=== PATIENT | female | born 1995 | race Two or more races ===

== ENCOUNTER 2017-12-06 05:39 | Inpatient (IN) | payer SELFPAY ==
[~2017-12-06] VITALS: Ht 160 cm; Wt 73.9 kg
[2017-12-06] VITALS (9 sets, daily range): BP systolic 113–138; BP diastolic 64–79
[~2017-12-06 05:39] MED LIST: IBUP-1060 PO; OXYC-323 PO
[2017-12-06] MEDS ORDERED: CITRIC ACID/SODIUM CITRATE 30 ML SOLUTION. PO ONE (06:00)
[2017-12-06] MEDS ORDERED: IV RINGERS,LACTATED 1000ML 1,000 ML IV SCH (06:00)
[2017-12-06 06:37] LABS: HEMATOCRIT 34.3 % (36.0-47.0); HEMOGLOBIN 11.8 g/dL (12.0-15.5); RED BLOOD COUNT 3.99 x10^6/uL (3.50-5.40); RED CELL DISTRIBUTION WIDTH 13.1 % (11.5-14.5); WHITE BLOOD COUNT 10.5 x10^3/uL (4.0-11.0)
[2017-12-06] MEDS: IV RINGERS,LACTATED 1000ML 1,000 ML IV SCH ×2 (07:11→10:31)
[2017-12-06] MEDS ORDERED: OXYTOCIN 10 UNIT/ML VIAL. ONE ×3 (07:35→08:09)
[2017-12-06] MEDS ORDERED: ONDANSETRON PF 4 MG/2 ML VIAL. ONE (07:35)
[2017-12-06] MEDS ORDERED: PHENYLEPHRINE in 0.9% NACL PF 1 MG/10 ML SYRINGE. IV ONE (07:35)
[2017-12-06] MEDS ORDERED: BUPIVACAINE MPF 0.75% DEXTROSE 2 ML AMPUL. ONE (07:36)
[2017-12-06] MEDS ORDERED: MORPHINE PF 5 MG/10 ML VIAL. ONE (07:38)
[2017-12-06] MEDS ORDERED: fentaNYL PF VIAL 100 MCG/2 ML VIAL ONE (07:38)
--- NOTE | 2017-12-06 08:36 | PDOC1 ---
OB - History Hx of Present Care: Good Care Ultrasounds: Normal mid trimester US Obstetrical Complications: None Medical Complications: None Past Family/Social History * Past Medical, Surgical, Family and Obstetric Histories reviewed from chart. Rubella: Immune RPR/VDRL: Negative GBS Status: Negative HBsAG: Negative OB - Chief Complaint & HPI Date of Admission: Date of Admission: Dec 06, 2017 at 05:39 Chief Complaint/History : 3 Para: 2 EGA: 39 Reason for admission: section Indication for : desires repeat Admission Nurse Assessment Rev: Yes OB - Admission Exam Physical Exam Vitals: VS - Last 72 Hours, by Label Date Time Temp Pulse Resp B/P (MAP) Pulse Ox O2 Delivery O2 Flow Rate FiO2 12/06/17 06:22 98.3 80 18 138/75 (96) 99 Room Air 98.3 HEENT: Normal Heart: Regular Rate Lungs: Clear, Equal Abdomen: Gravid, Non tender, Soft Extremities: Edema Reflexes: Normal Cervical Dilatation: 1cm Effacement: 25% Station: -3 Membranes: Intact Heart Rate: Normal Accelerations: Accelerations Present Decelerations: No decelerations Longterm Variability: Moderate Contractions on Admission: >10 Minutes Apart Intensity: Mild Text A: 39 wks IUP Previous c/s x 2 P: Admit for repeat c/s ZULLY BIRD Jr, MD Dec 06, 2017 08:36
--- NOTE | 2017-12-06 08:41 | PDOC4 ---
OB Operative Note Date: Dec 06, 2017 PRE OP DIAGNOSIS: Previoujs C- section POST OP DIAGNOSIS: Previous C- section OPERATION PERFORMED: R [facility] Surgeon Dr. Garrison Anesthesia: Regional (Spinal) Blood Loss 700 ml Specimen placenta and OB Findings: Position (Vertex), Sex (Female), (8/9), Weight (6 Lb 10 oz) Complications none Additional Remarks pt. ZULLY Wilson Jr, MD Dec 06, 2017 08:41
[2017-12-06] MEDS ORDERED: MAG HYDROX/ALUMINUM HYD/SIMETH 30 ML ORAL.SUSP PO PRN (08:45)
[2017-12-06] MEDS ORDERED: SIMETHICONE 80 MG TAB.CHEW PO PRN (08:45)
[2017-12-06] MEDS ORDERED: diphenhydrAMINE ORAL ELIXIR 12.5 MG/5 ML ML PO PRN (08:45)
[2017-12-06] MEDS ORDERED: OXYTOCIN 30 UNIT/500 ML PREMIX 500 ML IV PRN (08:45)
[2017-12-06] MEDS ORDERED: ONDANSETRON PF 4 MG/2 ML VIAL. IV PRN (08:45)
[2017-12-06] MEDS ORDERED: ZOLPIDEM 5 MG TABLET. PO PRN (08:45)
[2017-12-06] MEDS ORDERED: 0.9 % SODIUM CHLORIDE 10 ML DISP.SYRIN. IV PRN (08:45)
--- NOTE | 2017-12-06 10:23 | OP ---
DATE OF SURGERY: PREOPERATIVE DIAGNOSES: 1. 39 weeks intrauterine . 2. Previous section x 2. POSTOPERATIVE DIAGNOSES: 1. 39 weeks intrauterine . 2. Previous section x 2. PROCEDURE: Repeat low transverse section. SURGEON: Zully Garrison MD. ANESTHESIA: Spinal. ESTIMATED BLOOD LOSS: 700 mL. COMPLICATIONS: None. FINDINGS: Viable female , Apgars 8 and 9, weight 6 pounds 10 ounces. Three-vessel cord, placenta delivered manually, nuchal cord x 1. SUMMARY: A 22-year-old 3, para 2, at 39 weeks, presented for repeat section. She was counseled on risks, benefits and expectations and voiced a clear understanding to proceed. DESCRIPTION OF PROCEDURE: The patient was taken to surgery suite, placed in dorsal supine position. She was prepped with ChloraPrep and draped in sterile fashion. After adequate anesthesia, a Pfannenstiel skin incision was made with scalpel down to and through the fascia. The fascia was extended laterally using curved Mead scissors. The superior edge of the fascia was grasped with two Shady clamps and dissected free of the abdominal rectus muscles using blunt dissection along with Bovie cautery. The same process took place inferiorly. The abdominal rectus muscles were then dissected at the midline using curved Mead scissors. The peritoneum was entered as well and dissected bluntly. The Fabrice ring retractor was placed. Lower transverse hysterotomy incision was performed down to the amniotic sac. Hysterotomy incision was extended laterally and superiorly digitally. Amniotomy was performed with Allis clamp, which elicited moderate amount of clear fluid. With aid of fundal pressure, the infant's head was delivered in a smooth atraumatic manner. Nuchal cord x 1 was visualized. With additional fundal pressure, the anterior shoulder was delivered followed by posterior shoulder and rest of female was delivered. Nuchal cord was reduced. was suctioned with bulb syringe orally and nasally, umbilical cord was clamped twice and cut and viable female was handed to awaiting nursing staff. Umbilical cord blood was then obtained. The 3-vessel cord placenta was delivered manually. The uterus was then exteriorized, cleared of clot and debris with moist lap. The hysterotomy incision was reapproximated using 1-0 Vicryl suture in running locked fashion. The uterus palpated firm. Fallopian tubes and ovaries appeared normal bilaterally. Posterior cul-de-sac was cleared of clot and debris with a moist lap. The uterus then returned to the abdomen. Hysterotomy incision was reviewed and was hemostatic. Pericolic gutters were cleared of clot and debris with a moist lap. Interceed was placed over the hysterotomy incision in an inverted T fashion. The Fabrice ring retractor was removed. The peritoneum was reapproximated using 1-0 Vicryl suture in running fashion. Fascia was reapproximated using 0 Vicryl suture in running fashion. Skin was reapproximated using 4-0 Vicryl suture in subcuticular manner. The patient tolerated the procedure well and was taken to the recovery room in stable condition. Sponge and needle count correct x 3. ZULLY GARRISON MD DR: ROBB/ana JOB#: [id number] / [id number]
[2017-12-06] MEDS: KETOROLAC 30 MG/ML VIAL. IV PRN (10:32)
[2017-12-06] MEDS ORDERED: METOCLOPRAMIDE HCL 10 MG/2 ML VIAL. IV PRN ×2 (12:00→12:15)
[2017-12-07] MEDS: KETOROLAC 30 MG/ML VIAL. IV PRN (00:57)
[2017-12-07 04:31] LABS: BASO % 0 % (0-3); EOS % 0 % (0-3); HEMATOCRIT 29.5 % (36.0-47.0); HEMOGLOBIN 10.2 g/dL (12.0-15.5); LYMPH # 1.9 x10^3/uL (1.0-4.8); LYMPH % 14 % (24-48); MEAN CORPUSCULAR HEMOGLOBIN 30 pg (25-35); MEAN CORPUSCULAR HGB CONC 35 g/dL (31-37); MEAN CORPUSCULAR VOLUME 86 fL (79-100); MONO # 1.4 x10^3/uL (0.0-1.1); MONO % 11 % (0-9); NEUT # 9.8 x10^3uL (1.8-7.7); NEUT % 75 % (31-73); PLATELET COUNT 207 x10^3/uL (140-400); RED BLOOD COUNT 3.42 x10^6/uL (3.50-5.40); WHITE BLOOD COUNT 13.1 x10^3/uL (4.0-11.0)
[2017-12-07 06:26] VITALS: BP 115/72
[2017-12-07] MEDS: DOCUSATE SODIUM 100 MG CAPSULE. PO PRN ×2 (07:56→19:22)
[2017-12-07] MEDS: IBUPROFEN 400 MG TABLET. PO PRN ×3 (07:57→22:14)
[2017-12-07] MEDS: FERROUS SULFATE 325 MG TABLET. PO SCH ×2 (07:57→16:05)
[2017-12-07] MEDS: oxyCODONE/APAP 5/325 1 TAB TABLET PO PRN ×2 (07:57→19:22)
[2017-12-07 12:10] VITALS: BP 107/75
--- NOTE | 2017-12-07 15:49 | PDOC ---
OB Progress Note Date of Service 12/07/17 Time of Evaluation 1545 Notes Pt. feeling well. No complaints. Lab Laboratory Tests Test 12/06/17 06:10 12/06/17 06:23 12/07/17 03:00 Treponema pallidum Antibody Nonreactive (Nonreactive) White Blood Count 10.5 x10^3/uL (4.0-11.0) 13.1 x10^3/uL (4.0-11.0) Red Blood Count 3.99 x10^6/uL (3.50-5.40) 3.42 x10^6/uL (3.50-5.40) Hemoglobin 11.8 g/dL (12.0-15.5) 10.2 g/dL (12.0-15.5) Hematocrit 34.3 % (36.0-47.0) 29.5 % (36.0-47.0) Mean Corpuscular Volume 86 fL (79-100) 86 fL (79-100) Mean Corpuscular Hemoglobin 30 pg (25-35) 30 pg (25-35) Mean Corpuscular Hemoglobin Concent 35 g/dL (31-37) 35 g/dL (31-37) Red Cell Distribution Width 13.1 % (11.5-14.5) 13.0 % (11.5-14.5) Platelet Count 254 x10^3/uL (140-400) 207 x10^3/uL (140-400) Neutrophils (%) (Auto) 75 % (31-73) Lymphocytes (%) (Auto) 14 % (24-48) Monocytes (%) (Auto) 11 % (0-9) Eosinophils (%) (Auto) 0 % (0-3) Basophils (%) (Auto) 0 % (0-3) Neutrophils # (Auto) 9.8 x10^3uL (1.8-7.7) Lymphocytes # (Auto) 1.9 x10^3/uL (1.0-4.8) Monocytes # (Auto) 1.4 x10^3/uL (0.0-1.1) Eosinophils # (Auto) 0.0 x10^3/uL (0.0-0.7) Basophils # (Auto) 0.0 x10^3/uL (0.0-0.2) Laboratory Tests Test 12/07/17 03:00 White Blood Count 13.1 x10^3/uL (4.0-11.0) Red Blood Count 3.42 x10^6/uL (3.50-5.40) Hemoglobin 10.2 g/dL (12.0-15.5) Hematocrit 29.5 % (36.0-47.0) Mean Corpuscular Volume 86 fL (79-100) Mean Corpuscular Hemoglobin 30 pg (25-35) Mean Corpuscular Hemoglobin Concent 35 g/dL (31-37) Red Cell Distribution Width 13.0 % (11.5-14.5) Platelet Count 207 x10^3/uL (140-400) Neutrophils (%) (Auto) 75 % (31-73) Lymphocytes (%) (Auto) 14 % (24-48) Monocytes (%) (Auto) 11 % (0-9) Eosinophils (%) (Auto) 0 % (0-3) Basophils (%) (Auto) 0 % (0-3) Neutrophils # (Auto) 9.8 x10^3uL (1.8-7.7) Lymphocytes # (Auto) 1.9 x10^3/uL (1.0-4.8) Monocytes # (Auto) 1.4 x10^3/uL (0.0-1.1) Eosinophils # (Auto) 0.0 x10^3/uL (0.0-0.7) Basophils # (Auto) 0.0 x10^3/uL (0.0-0.2) Medications Current Medications Ringer's Solution 1,000 ml @ 1,000 mls/hr Q1H IV Last administered on at 06:28; Start 12/06/17 at 06:00; Stop 12/06/17 at 06:59; Status DC Ringer's Solution 1,000 ml @ 125 mls/hr Q8H IV Last administered on at 10:31; Start 12/06/17 at 06:00 Cefazolin Sodium/ Dextrose 50 ml @ 100 mls/hr 1X ONCE IV Last administered on 12/06/17at 06:29; Start 12/06/17 at 06:00; Stop 12/06/17 at 06:29; Status DC Citric Acid/ Sodium Citrate (Bicitra) 30 ml 1X ONCE PO Last administered on at 06:27; Start 12/06/17 at 06:00; Stop 12/06/17 at 06:01; Status DC Ondansetron HCl (Zofran) 4 mg STK-MED ONCE .ROUTE ; Start 12/06/17 at 07:35; Stop 12/06/17 at 07:36; Status DC Phenylephrine HCl (PHENYLEPHRINE in 0.9% NACL PF) 1 mg STK-MED ONCE IV ; Start 12/06/17 at 07:35; Stop 12/06/17 at 07:36; Status DC Oxytocin (Pitocin) 10 unit STK-MED ONCE .ROUTE ; Start 12/06/17 at 07:35; Stop 12/06/17 at 07:36; Status DC Ephedrine Sulfate (Akovaz) 50 mg STK-MED ONCE .ROUTE ; Start 12/06/17 at 07:35 ; Stop 12/06/17 at 07:36; Status DC Bupivacaine HCl/ Dextrose (Marcaine Spinal 0.75%) 2 ml STK-MED ONCE .ROUTE ; Start 12/06/17 at 07:36; Stop 12/06/17 at 07:37; Status DC Morphine Sulfate (Morphine Preservative Free) 5 mg STK-MED ONCE .ROUTE ; Start 12/06/17 at 07:38; Stop 12/06/17 at 07:39; Status DC Fentanyl Citrate (Fentanyl 2ml Vial) 100 mcg STK-MED ONCE .ROUTE ; Start at 07:38; Stop 12/06/17 at 07:39; Status DC Oxytocin (Pitocin) 10 unit STK-MED ONCE .ROUTE ; Start 12/06/17 at 08:09; Stop 12/06/17 at 08:10; Status DC Oxytocin (Pitocin) 10 unit STK-MED ONCE .ROUTE ; Start 12/06/17 at 08:09; Stop 12/06/17 at 08:10; Status DC Sodium Chloride (Normal Saline Flush) 3 ml QSHIFT PRN IV AFTER MEDS AND BLOOD DRAWS; Start 12/06/17 at 08:45 Oxytocin/Sodium Chloride 500 ml @ 125 mls/hr CONT PRN IV EXCESSIVE POST- BLEEDING; Start 12/06/17 at 08:45; Stop 12/06/17 at 16:44; Status DC Ibuprofen (Motrin) 800 mg PRN Q4HRS PRN PO INFLAMMATION Last administered on at 07:57; Start 12/06/17 at 08:45 Ondansetron HCl (Zofran) 4 mg PRN Q6HRS PRN IV NAUSEA/VOMITING, 1st CHOICE Last administered on 12/06/17at 11:40; Start 12/06/17 at 08:45 Docusate Sodium (Colace) 100 mg PRN BID PRN PO CONSTIPATION Last administered on 12/07/17at 07:56; Start 12/06/17 at 08:45 Al Hydroxide/Mg Hydroxide (Mylanta Plus Xs) 30 ml PRN Q4HRS PRN PO HEARTBURN / GAS; Start 12/06/17 at 08:45 Simethicone (Gas-X) 80 mg PRN AFTMEALHC PRN PO GAS / BLOATING; Start 12/06/17 at 08:45 Diphenhydramine HCl (Benadryl Oral Elixir) 12.5 mg PRN Q6HRS PRN PO ITCHING; Start 12/06/17 at 08:45 Ferrous Sulfate (Feosol) 325 mg BIDWMEALS PO Last administered on 12/07/17at 07 :57; Start 12/06/17 at 17:00 Zolpidem Tartrate (Ambien) 5 mg PRN QHS PRN PO INSOMNIA, MAY REPEAT X1; Start 12/06/17 at 08:45 Oxycodone/ Acetaminophen (Percocet 5/325) 2 tab PRN Q4HRS PRN PO MODERATE PAIN , SEVERE PAIN Last administered on 12/07/17at 07:57; Start 12/06/17 at 08:45 Ketorolac Tromethamine (Toradol 30mg Vial) 30 mg PRN Q6HRS PRN IV PAIN Last administered on 12/07/17at 00:57; Start 12/06/17 at 08:45; Stop 12/11/17 at 08 :44 Metoclopramide HCl (Reglan Vial) 10 mg PRN Q6HRS PRN IV NAUSEA/VOMITING, 2ND CHOICE; Start 12/06/17 at 12:00 Metoclopramide HCl (Reglan Vial) 10 mg PRN Q8HRS PRN IV NAUSEA/VOMITING 3RD CHOICE Last administered on 12/06/17at 12:23; Start 12/06/17 at 12:15 Active Scripts Active Percocet 5-325 Mg Tablet (Oxycodone/Acetaminophen) 1 Each Tablet 1 Tab PO Q4HRS W/A Ibuprofen 800 Mg Tablet 800 Mg PO Q6H PRN Exam Abd: soft, mild tenderness, fundus firm Incision site: clean, dry and intact Assessment POD#1 s/p repeat c/s Plan of Care: Continue current Tx, Mgmt ZULLY BIRD Jr, MD Dec 07, 2017 15:49
[2017-12-07 17:17] VITALS: BP 112/72
[2017-12-07 23:13] VITALS: BP 122/73
[2017-12-08] MEDS: oxyCODONE/APAP 5/325 1 TAB TABLET PO PRN (06:19)
[2017-12-08] MEDS: IBUPROFEN 400 MG TABLET. PO PRN ×2 (06:20→18:47)
[2017-12-08 06:23] VITALS: BP 115/75
--- NOTE | 2017-12-08 08:26 | PDOC ---
Provider Note Provider Note Doing well VSS Incision CDI FU in AM MIKE LIRIANO MD Dec 08, 2017 08:26
[2017-12-08] MEDS: FERROUS SULFATE 325 MG TABLET. PO SCH ×2 (11:30→18:47)
[2017-12-08] MEDS: DOCUSATE SODIUM 100 MG CAPSULE. PO PRN ×2 (11:30→18:47)
[2017-12-08 12:00] VITALS: BP 122/80
[2017-12-08 21:00] VITALS: BP 116/71
[2017-12-09] MEDS: oxyCODONE/APAP 5/325 1 TAB TABLET PO PRN ×2 (00:01→08:48)
[2017-12-09 05:48] VITALS: BP 132/80
[2017-12-09] MEDS ORDERED: MAGNESIUM HYDROXIDE 2,400 MG/30 ML ORAL.SUSP. PO ONE (08:30)
[2017-12-09 08:40] VITALS: BP 126/85
[2017-12-09] MEDS: DOCUSATE SODIUM 100 MG CAPSULE. PO PRN (08:46)
[2017-12-09] MEDS: FERROUS SULFATE 325 MG TABLET. PO SCH (08:47)
[2017-12-09] MEDS: IBUPROFEN 400 MG TABLET. PO PRN (08:47)
--- NOTE | 2017-12-09 11:20 | PDOC3 ---
OB DISCHARGE SUMMARY DATE OF ADMISSION: 12/06/17 DATE OF DISCHARGE: 12/09/17 REASON FOR ADMISSION: section INTRAPARTUM PROCEDURES: : Low Cerv Trans DISCHARGE DIAGNOSIS: Term Delivered DISCHARGE INFORMATION: Activity (ad ese), Diet (regular), Instructions (pelvic rest x 6 wks, no driving x 2 wks, no lifting > 20 lbs. x 4 wks) HOSPITAL COURSE Term gestation delivered via repeat c/s without complications. ZULLY BIRD Jr, MD Dec 09, 2017 11:20
--- NOTE | 2017-12-09 11:21 | DISCH ---
DISCHARGE INSTRUCTIONS Condition on Discharge Condition on Discharge: Stable Activity After Discharge Activity Instructions for Disc: Activity as tolerated Lifting Instructions after Dis: No heavy lifting, No pulling or pushing, Do not lift >10 pounds Exercise Instruction after Dis: Progress as tolerated Driving Instructions after Dis: No driving for 2 weeks Weight Bearing Status after Di: As tolerated Diet after Discharge Diet after Discharge: Regular Diet Texture: Regular Wound Incision Care Wound/Incision Care: Ice to area for comfort Checks after Discharge Checks after discharge: Check your Temp as needed Contacting the DRDory after DC Call your doctor for: If your condition worsens Follow-Up Follow up with: Dr. Kent in 1 wk Treatment/Equipment after DC Adaptive Equipment Issued: None ZULLY BIRD Jr, MD Dec 09, 2017 11:21
[2017-12-09] MEDS ORDERED: NAPR-683 PO (11:23)
[2017-12-09] MEDS ORDERED: DOCU-109 PO (11:23)
[2017-12-09] MEDS ORDERED: OXYC1TAB7 PO (11:23)
[2017-12-09 13:25] VITALS: BP 121/75
== END 2017-12-09 15:05 | disposition home or self-care (01) | DRG 788 ==
LOC: 3 SO LND 05:39 → 3 NORTH 11:10
PROVIDERS: ADMIT Specialist; ATTEND Specialist
PROC: 10D00Z1 Extraction of Products of Conception, Low, Open Approach (ICD-10-PCS; principal; 2017-12-06)
DX: O34.211 Maternal care for low transverse scar from previous cesarean delivery (principal); O69.81X0 Labor and delivery complicated by cord around neck, without compression, not applicable or unspecified; Z37.0 Single live birth; Z3A.39 39 weeks gestation of pregnancy
CPT/HCPCS: 36415; 85025; 85027; 86592; 86850; 86900; 86901; J0690; J1885; J2270; J2370; J2405; J2590; J2765; J3010; J7120